=== PATIENT | female | born 1960 | race African-American/Black ===

== ENCOUNTER 2023-11-22 21:06 | Inpatient (IN) | payer OTHER ==
[~2023-11-22] VITALS: Ht 170.2 cm; Wt 108.4 kg
[2023-11-22 21:08] VITALS: O2SAT 99
[2023-11-22 21:47] LABS: BASOPHILS % 0.2 % (0.0-2.0); EOSINOPHILS % 0.1 % (0.0-5.0); HEMOGLOBIN. 9.1 g/dL (12.0-16.0); LYMPHOCYTES % 26.9 % (20.0-50.0); MEAN CORPUSCULAR HEMOGLOBIN 29.6 pg (28.0-32.0); MEAN CORPUSCULAR HGB CONC 32.6 g/dL (31.0-37.0); MEAN CORPUSCULAR VOLUME 90.9 fL (81.0-99.0); MEAN PLATELET VOLUME 8.2 fl (7.4-10.4); MONOCYTES % 9.5 % (2.0-8.0); NEUTROPHILS % 63.3 % (40.0-76.0); PLATELET 238 x1000/uL (130-400); RED BLOOD CELL COUNT 3.07 mill/uL (4.2-5.4); RED CELL DISTRIBUTION WIDTH 17.2 % (11.6-14.6); WHITE BLOOD COUNT 2.2 x1000/uL (4.5-11.0)
[2023-11-22 21:56] LABS: CHLORIDE 110 mEq/L (98-107); POTASSIUM 4.1 mEq/L (3.5-5.1); SODIUM 138 mEq/L (136-145)
[2023-11-22 21:57] LABS: CALCIUM 8.4 mg/dL (8.7-10.4); CARBON DIOXIDE 20 mEq/L (21-32)
[2023-11-22 22:02] LABS: CREATININE 1.1 mg/dL (0.6-1.0); ETHANOL BLOOD < 10 mg/dL (<10); UREA NITROGEN BLOOD 10 mg/dL (9-23)
[2023-11-22 22:06] LABS: GLUCOSE 37 mg/dL (70-105); TROPONIN I HIGH SENSITIVITY 65 ng/L (3.0-34)
[2023-11-22] MEDS: DEXTROSE 50% WATER 50ML SYRINGE IV ONE (23:30)
[2023-11-23] VITALS (8 sets, daily range): BP systolic 144–157; BP diastolic 72–85; PULSE 84–101; RESP 17–23; TEMP 97.1–98.2
[2023-11-23 00:03] LABS: PROTHROMBIN TIME 10.9 sec (9.6-11.0)
[2023-11-23] MEDS: DEXT 10% WATER 1,000 ML IV ONE ×2 (00:15→18:15)
[2023-11-23 00:40] LABS: TROPONIN I HIGH SENSITIVITY 65 ng/L (3.0-34)
[2023-11-23] MEDS: DEXTROSE 50% WATER 50ML SYRINGE IV ONE (02:41)
[2023-11-23] MEDS ORDERED: DEXTROSE 50% WATER 50ML SYRINGE IV ONE (02:45)
[2023-11-23 03:41] LABS: CLARITY URINE CLEAR (CLEAR); COLOR URINE YELLOW (YELLOW); GLUCOSE URINE NEGATIVE (NEGATIVE); KETONES URINE NEGATIVE (NEGATIVE); LEUKOCYTE ESTERASE URINE NEGATIVE (NEGATIVE); NITRITE URINE NEGATIVE (NEGATIVE); OCCULT BLOOD URINE 1+ (NEGATIVE); PROTEIN URINE TRACE (NEGATIVE); SPECIFIC GRAVITY URINE 1.012 (1.005-1.030); UROBILINOGEN URINE 0.2 E.U./dL (0.2-1.0)
[2023-11-23 03:46] LABS: *AMPHETAMINES SCREEN URINE NEGATIVE (NEGATIVE); *BARBITURATES SCREEN URINE NEGATIVE (NEGATIVE); *COCAINE SCREEN URINE NEGATIVE (NEGATIVE); ECSTASY MDMA SCREEN URINE NEGATIVE (NEGATIVE); METHADONE URINE SCREEN NEGATIVE (NEGATIVE); OPIATES URINE SCREEN NEGATIVE (NEGATIVE)
[2023-11-23 04:04] LABS: *BENZODIAZEPINES SCREEN URINE NEGATIVE (NEGATIVE); CANNABINOID URINE SCREEN NEGATIVE (NEGATIVE); PHENCYCLIDINE URINE SCREEN NEGATIVE (NEGATIVE)
[2023-11-23] MEDS: DEXTROSE 50% WATER 50ML SYRINGE IV NR ×2 (05:31→10:48)
[2023-11-23 06:03] LABS: WBC URINE 0-2 /hpf (0-2)
[2023-11-23 06:04] LABS: RBC URINE 0-2 /hpf (0-2)
[2023-11-23 06:09] LABS: SQUAMOUS EPITHELIAL CELL URINE NONE SEEN /lpf (RARE/1+)
[2023-11-23 06:10] LABS: BACTERIA URINE NONE SEEN
[2023-11-23] MEDS: BLOOD SUGAR DIAGNOSTIC STRIP TEST SCH ×2 (12:16→22:15)
[2023-11-23] MEDS: DEXTROSE 50% WATER 50ML SYRINGE IV PRN ×2 (12:18→18:09)
[2023-11-23] MEDS: AMLODIPINE 2.5MG TABLET PO SCH (12:50)
[2023-11-23] MEDS: HYDRALAZINE HCL 50MG TABLET PO SCH (14:42)
[2023-11-24] VITALS (87 sets, daily range): BP systolic 101–192; BP diastolic 53–123; PULSE 77–111; RESP 12–30; TEMP 97.2–98.6
[2023-11-24] MEDS: HYDROCORTISONE SOD SUCCINATE 100 MG/2 ML VIAL IV SCH (00:45)
[2023-11-24 05:31] LABS: HEMATOCRIT. 22.5 % (36.0-48.0); HEMOGLOBIN. 7.6 g/dL (12.0-16.0); MEAN CORPUSCULAR HEMOGLOBIN 29.9 pg (28.0-32.0); MEAN CORPUSCULAR HGB CONC 33.6 g/dL (31.0-37.0); MEAN CORPUSCULAR VOLUME 88.8 fL (81.0-99.0); MEAN PLATELET VOLUME 8.1 fl (7.4-10.4); PLATELET 218 x1000/uL (130-400); RED BLOOD CELL COUNT 2.53 mill/uL (4.2-5.4); RED CELL DISTRIBUTION WIDTH 17.3 % (11.6-14.6)
[2023-11-24 05:34] LABS: CHLORIDE 109 mEq/L (98-107); POTASSIUM 3.8 mEq/L (3.5-5.1); SODIUM 139 mEq/L (136-145)
[2023-11-24 05:35] LABS: CARBON DIOXIDE 23 mEq/L (21-32)
[2023-11-24 05:36] LABS: CALCIUM 8.3 mg/dL (8.7-10.4)
[2023-11-24 05:40] LABS: CREATININE 1.1 mg/dL (0.6-1.0); GLUCOSE 68 mg/dL (70-105)
[2023-11-24 05:41] LABS: UREA NITROGEN BLOOD 12 mg/dL (9-23)
[2023-11-24 06:26] LABS: WHITE BLOOD COUNT 1.8 x1000/uL (4.5-11.0)
[2023-11-24 06:28] LABS: DIFFERENTIAL COMMENT 1
[2023-11-24] MEDS ORDERED: LIDOCAINE HCL 1% 10 MG/ML 10ML VIAL ONE (08:44)
[2023-11-24] MEDS: ENOXAPARIN 30MG/0.3ML SYR SUBCUT SCH (09:46)
[2023-11-24 13:05] LABS: CHLORIDE 107 mEq/L (98-107); SODIUM 136 mEq/L (136-145)
[2023-11-24 13:06] LABS: CALCIUM 8.2 mg/dL (8.7-10.4); CARBON DIOXIDE 23 mEq/L (21-32)
[2023-11-24 13:11] LABS: CREATININE 1.2 mg/dL (0.6-1.0); GLUCOSE 168 mg/dL (70-105); UREA NITROGEN BLOOD 12 mg/dL (9-23)
[2023-11-24 13:13] LABS: ALANINE AMINOTRANSFERASE 15 IU/L (10-49); ALBUMIN 3.3 g/dL (3.2-4.8); ASPARTATE AMINOTRANSFERASE 15 IU/L (<34); BILIRUBIN TOTAL 0.4 mg/dL (0.1-1.0); PROTEIN TOTAL 6.3 g/dL (6.0-8.3)
[2023-11-24 14:45] LABS: ANISOCYTOSIS 1+; PLATELET ESTIMATE NORMAL
[2023-11-24 15:01] LABS: PHOSPHORUS 1.8 mg/dL (2.5-4.9)
[2023-11-24] MEDS: MAGNESIUM 4 G PREMIX 100 ML IV SCH (15:04)
[2023-11-24 15:43] LABS: BETA HYDROXYBUTYRATE 0.1 mMol/L (0.0-0.3)
[2023-11-24] MEDS: SODIUM PHOSPHATE 15 MMOL in DEXT 5% WATER 245 ML IV NR (18:33)
[2023-11-24] MEDS ORDERED: DEXTROSE 50% WATER 50ML SYRINGE IV PRN (20:30)
[2023-11-24] MEDS ORDERED: BLOOD SUGAR DIAGNOSTIC STRIP TEST SCH (21:00)
[2023-11-24] MEDS ORDERED: INSULIN LISPRO 100 UNITS/ML SUBCUT SCH (21:00)
[2023-11-24 22:14] LABS: THYROID STIMULATING HORMONE 0.11 uIU/mL (0.55-4.78)
[2023-11-24 22:15] LABS: T4 FREE 1.19 ng/dL (0.89-1.76)
[2023-11-24] MEDS: BLOOD SUGAR DIAGNOSTIC STRIP TEST SCH (23:46)
[2023-11-25] VITALS (59 sets, daily range): BP systolic 115–155; BP diastolic 50–77; PULSE 69–105; RESP 10–27; TEMP 97.6–98.5
[2023-11-25] MEDS: INSULIN LISPRO 100 UNITS/ML SUBCUT SCH (00:05)
[2023-11-25 05:13] LABS: MEAN CORPUSCULAR HEMOGLOBIN 29.9 pg (28.0-32.0); MEAN CORPUSCULAR HGB CONC 33.8 g/dL (31.0-37.0); MEAN CORPUSCULAR VOLUME 88.6 fL (81.0-99.0); PLATELET 159 x1000/uL (130-400); RED BLOOD CELL COUNT 2.24 mill/uL (4.2-5.4); RED CELL DISTRIBUTION WIDTH 17.1 % (11.6-14.6)
[2023-11-25 05:28] LABS: CALCIUM 8.5 mg/dL (8.7-10.4); CARBON DIOXIDE 23 mEq/L (21-32); CHLORIDE 106 mEq/L (98-107); SODIUM 135 mEq/L (136-145)
[2023-11-25 05:34] LABS: CREATININE 1.2 mg/dL (0.6-1.0); GLUCOSE 211 mg/dL (70-105); UREA NITROGEN BLOOD 17 mg/dL (9-23)
[2023-11-25 05:36] LABS: PHOSPHORUS 3.4 mg/dL (2.5-4.9)
[2023-11-25 06:27] LABS: HEMOGLOBIN 6.7 g/dL (12.0-16.0); WHITE BLOOD COUNT 1.9 x1000/uL (4.5-11.0)
[2023-11-25 06:28] LABS: HEMATOCRIT 19.8 % (36.0-48.0)
[2023-11-25] MEDS: PANTOPRAZOLE SODIUM 40 MG/VIAL IV SCH (08:52)
[2023-11-25 12:02] LABS: LACTATE DEHYDROGENASE 194 IU/L (120-246)
[2023-11-25 19:34] LABS: IRON 101 ug/dL (50-170)
[2023-11-25 19:37] LABS: TOTAL IRON BINDING CAPACITY 259 ug/dl (250-425)
[2023-11-25 19:40] LABS: FERRITIN 520 ng/mL (10-291); FOLIC ACID (FOLATE) SERUM 9.82 ng/mL (>5.38); VITAMIN B12 SERUM 252 pg/mL (211-911)
[2023-11-25] MEDS ORDERED: CYANOCOBALAMIN 1000MCG/ML VIAL SUBCUT SCH (23:00)
[2023-11-26 13:11] LABS: C-PEPTIDE 5.6 ng/mL (1.1-4.4); INSULIN 29.4 uIU/mL (2.6-24.9)
== END 2023-11-25 22:25 | disposition short-term general hospital (02) | DRG 637 ==
LOC: ER 21:06 → 5WST 11-23 01:21 → EDBEDREQDT 11-23 03:29 → EDBEDREQTM 11-23 03:29 → EDBEDREQ 11-23 03:35 → 5EST 11-23 14:14 → CVICU 11-24 00:20 → MICUSO 11-24 11:14
PROVIDERS: ADMIT Internal Medicine; ATTEND Internal Medicine
PROC: 02HV33Z Insertion of Infusion Device into Superior Vena Cava, Percutaneous Approach (ICD-10-PCS; principal; 2023-11-24)
PROC: B548ZZA Ultrasonography of Superior Vena Cava, Guidance (ICD-10-PCS; 2023-11-24)
DX: E11.649 Type 2 diabetes mellitus with hypoglycemia without coma (principal); G92.8 Other toxic encephalopathy; I21.A1 Myocardial infarction type 2; J96.01 Acute respiratory failure with hypoxia; C56.9 Malignant neoplasm of unspecified ovary; N17.9 Acute kidney failure, unspecified; D72.819 Decreased white blood cell count, unspecified; E11.40 Type 2 diabetes mellitus with diabetic neuropathy, unspecified; E78.00 Pure hypercholesterolemia, unspecified; E83.39 Other disorders of phosphorus metabolism; E83.42 Hypomagnesemia; R56.9 Unspecified convulsions; T38.3X5A Adverse effect of insulin and oral hypoglycemic [antidiabetic] drugs, initial encounter; I11.9 Hypertensive heart disease without heart failure; D64.9 Anemia, unspecified; I16.0 Hypertensive urgency; Z79.84 Long term (current) use of oral hypoglycemic drugs; Z85.43 Personal history of malignant neoplasm of ovary; Z92.21 Personal history of antineoplastic chemotherapy; Z82.3 Family history of stroke
CPT/HCPCS: 36415; 36573; 71045; 76700; 80048; 80053; 80305; 80320; 81003; 82010; 82533; 82607; 82728; 82746; 82962; 83036; 83525; 83540; 83550; 83605; 83615; 83735; 83880; 84100; 84145; 84206; 84439; 84443; 84484; 84681; 85025; 85027; 85044; 86337; 93005; 99291; A6261; C1725; J1650; J1720; J1815; J3475; J3490; J7060; G0480

== ENCOUNTER 2024-04-12 19:39 | Inpatient (IN) | payer OTHER ==
[~2024-04-12] VITALS: Ht 167.6 cm; Wt 79.8 kg
[2024-04-12 22:47] LABS: CHLORIDE 112 mEq/L (98-107); POTASSIUM 4.4 mEq/L (3.5-5.1); SODIUM 140 mEq/L (136-145)
[2024-04-12 22:48] LABS: CALCIUM 8.2 mg/dL (8.7-10.4); CARBON DIOXIDE 22 mEq/L (21-32)
[2024-04-12 22:49] LABS: HEMATOCRIT. 25.4 % (36.0-48.0); HEMOGLOBIN. 7.7 g/dL (12.0-16.0); MEAN CORPUSCULAR HEMOGLOBIN 29.6 pg (28.0-32.0); MEAN CORPUSCULAR HGB CONC 30.5 g/dL (31.0-37.0); MEAN CORPUSCULAR VOLUME 97.3 fL (81.0-99.0); PLATELET 202 x1000/uL (130-400); RED BLOOD CELL COUNT 2.61 mill/uL (4.2-5.4); RED CELL DISTRIBUTION WIDTH 22.1 % (11.6-14.6); WHITE BLOOD COUNT 15.1 x1000/uL (4.5-11.0)
[2024-04-12 22:50] LABS: DIFFERENTIAL COMMENT 1
[2024-04-12 22:53] LABS: GLUCOSE 129 mg/dL (70-105); UREA NITROGEN BLOOD 26 mg/dL (9-23)
[2024-04-12 22:54] LABS: TROPONIN I HIGH SENSITIVITY 24 ng/L (3.0-34)
[2024-04-12 23:00] LABS: CREATININE 1.8 mg/dL (0.6-1.0)
[2024-04-12 23:23] LABS: ANISOCYTOSIS 2+; OVALOCYTES 1+; PLATELET ESTIMATE NORMAL
[2024-04-12 23:24] LABS: HYPOCHROMASIA 1+
[2024-04-13 00:52] LABS: ALANINE AMINOTRANSFERASE 16 IU/L (10-49); ALBUMIN 2.7 g/dL (3.2-4.8); ASPARTATE AMINOTRANSFERASE 16 IU/L (<34); BILIRUBIN DIRECT 0.3 mg/dL (<=3.0); BILIRUBIN TOTAL 0.6 mg/dL (0.1-1.0)
[2024-04-13] MEDS: ONDANSETRON HCL 4MG/2ML INJ IV STA (01:03)
[2024-04-13] MEDS: SODIUM CHLORIDE 0.9% 1,000 ML IV ONE (01:03)
[2024-04-13] MEDS ORDERED: IOHEXOL-300 100 ML BOTTLE ONE (02:50)
[2024-04-13 04:08] VITALS: BP 122/71; PULSE 71; RESP 18; TEMP 36.55848
[2024-04-13 06:04] VITALS: BP 122/71; PULSE 97; RESP 19; TEMP 36.5848
[2024-04-13] MEDS ORDERED: DEXTROSE 50% WATER 50ML SYRINGE IV PRN (06:15)
[2024-04-13] MEDS ORDERED: CEFEPIME 1GM IN DEXT 5% 50ML IV SCH (06:15)
[2024-04-13] MEDS ORDERED: CLONIDINE 0.1MG TABLET PO PRN (06:15)
[2024-04-13] MEDS ORDERED: MORPHINE SULFATE 2 MG/ML INJ (NOT FOR IM USE) IV PRN (06:15)
[2024-04-13] MEDS ORDERED: ONDANSETRON HCL 4MG/2ML INJ IV PRN (06:15)
[2024-04-13] MEDS ORDERED: ACETAMINOPHEN 325MG TABLET PO PRN ×2 (06:15)
[2024-04-13] MEDS ORDERED: IPRATROPIUM/ALBUTEROL 0.5-3(2.5)MG/3ML NEB HHN PRN (06:15)
[2024-04-13] MEDS: SODIUM CHLORIDE 0.9% 1,000 ML IV SCH (07:03)
[2024-04-13] MEDS: ENOXAPARIN 80MG/0.8ML SYR SUBCUT ONE (07:10)
[2024-04-13] MEDS: BLOOD SUGAR DIAGNOSTIC STRIP TEST SCH (07:15)
[2024-04-13] MEDS: INSULIN LISPRO 100 UNITS/ML SUBCUT SCH (07:15)
[2024-04-13] MEDS: CEFEPIME 1GM/50ML 50 ML IV SCH (10:14)
[2024-04-13 12:07] VITALS: BP 118/73; PULSE 89; RESP 17; TEMP 36.72516; O2SAT 99
[2024-04-13] MEDS: PANTOPRAZOLE SODIUM 40 MG/VIAL IV SCH (14:15)
[2024-04-13 16:00] VITALS: BP 110/67; PULSE 100; RESP 20; TEMP 36.44736; O2SAT 96
[2024-04-13 16:27] VITALS: BP 110/52; PULSE 98; RESP 16; TEMP 36.55848; O2SAT 99
[2024-04-13 18:37] LABS: HEMATOCRIT 25.3 % (36.0-48.0); HEMOGLOBIN 7.6 g/dL (12.0-16.0); INR 1.3; MEAN CORPUSCULAR HEMOGLOBIN 29.9 pg (28.0-32.0); MEAN CORPUSCULAR HGB CONC 30.2 g/dL (31.0-37.0); PLATELET 230 x1000/uL (130-400); PROTHROMBIN TIME 13.9 sec (9.6-11.0); RED BLOOD CELL COUNT 2.56 mill/uL (4.2-5.4); RED CELL DISTRIBUTION WIDTH 22.5 % (11.6-14.6); WHITE BLOOD COUNT 15.9 x1000/uL (4.5-11.0)
[2024-04-13 19:01] LABS: POTASSIUM 4.4 mEq/L (3.5-5.1)
[2024-04-13 19:02] LABS: CALCIUM 8.2 mg/dL (8.7-10.4)
[2024-04-13 19:07] LABS: CREATININE 1.7 mg/dL (0.6-1.0)
[2024-04-13 20:00] VITALS: BP 118/65; PULSE 102; RESP 20; TEMP 36.6696; O2SAT 98
[2024-04-13] MEDS ORDERED: IPRATROPIUM/ALBUTEROL 0.5-3(2.5)MG/3ML NEB HHN SCH (20:30)
[2024-04-13] MEDS: CEFEPIME 2GM/100ML 100 ML IV SCH (23:45)
[2024-04-14] VITALS: BP 112/65; PULSE 108; RESP 20; TEMP 36.78072; O2SAT 97
[2024-04-14 04:00] VITALS: BP 105/66; PULSE 89; RESP 20; TEMP 36.6696; O2SAT 97
[2024-04-14 08:00] VITALS: BP 95/53; PULSE 99; RESP 18; TEMP 36.78072; O2SAT 96
[2024-04-14 12:00] VITALS: BP 98/60; PULSE 92; RESP 18; TEMP 36.50292; O2SAT 94
[2024-04-14] MEDS: HYDROCODONE/ACETAMINOPHEN 10/325MG TABLET PO NR (16:02)
[2024-04-14 16:05] VITALS: BP 112/62; PULSE 94; RESP 18; TEMP 36.50292; O2SAT 94
[2024-04-14 16:44] VITALS: BP 112/62; PULSE 94; TEMP 97.7; O2SAT 94
[2024-04-14] MEDS ORDERED: HYDROCODONE/ACETAMINOPHEN 5/325MG TABLET PO PRN (19:00)
== END 2024-04-14 17:37 | disposition short-term general hospital (02) | DRG 871 ==
LOC: ER 19:41 → EDBEDREQ 04-13 00:40 → EDBEDREQTM 04-13 02:24 → 5WST 04-13 03:27 → 8WST 04-13 16:46
PROVIDERS: ADMIT Family Medicine Adult Medicine; ATTEND Family Medicine Adult Medicine
DX: A41.9 Sepsis, unspecified organism (principal); E43 Unspecified severe protein-calorie malnutrition; J18.9 Pneumonia, unspecified organism; N17.0 Acute kidney failure with tubular necrosis; R18.8 Other ascites; K74.60 Unspecified cirrhosis of liver; I10 Essential (primary) hypertension; D64.9 Anemia, unspecified; E88.09 Other disorders of plasma-protein metabolism, not elsewhere classified; E11.9 Type 2 diabetes mellitus without complications; C22.0 Liver cell carcinoma; J91.8 Pleural effusion in other conditions classified elsewhere; L02.31 Cutaneous abscess of buttock; Z68.28 Body mass index [BMI] 28.0-28.9, adult; Z79.899 Other long term (current) drug therapy; Z90.710 Acquired absence of both cervix and uterus; Z85.028 Personal history of other malignant neoplasm of stomach; Z85.42 Personal history of malignant neoplasm of other parts of uterus
CPT/HCPCS: 36415; 71045; 74177; 76604; 80048; 80076; 82962; 83036; 83605; 83880; 84145; 84484; 85025; 85027; 93005; 93970; 99291; J0692; J1650; J1815; J2405; J2470; J7030; Q9967